=== PATIENT | male | born 1960 | race Hispanic/Latino ===

== ENCOUNTER 2021-05-29 08:26 | Inpatient (IN) | payer OTHER ==
[2021-05-25 09:10] LABS: BASOPHILS % (AUTO) 1.4 % (0.0-5.0); HEMATOCRIT 47.8 % (42-54); LYMPHOCYTES % (AUTO) 29.1 % (21.0-51.0); MEAN CORPUSCULAR HEMOGLOBIN 28.5 pg (27.0-33.0); MEAN CORPUSCULAR HGB CONC 31.4 g/dL (32.0-36.0); MEAN CORPUSCULAR VOLUME 90.9 fL (79-99); MONOCYTES % (AUTO) 7.4 % (3.0-13.0); NEUTROPHILS % (AUTO) 45.6 % (40.0-77.0); PLATELET COUNT (AUTO) 236 K/uL (130-400); RED BLOOD CELL COUNT(AUTO) 5.26 MIL/uL (4.50-6.20); WHITE BLOOD COUNT (AUTO) 6.7 K/uL (4.8-10.8)
[2021-05-25 09:18] LABS: APPEARANCE,URINE Clear (CLEAR); BILIRUBIN,URINE Negative (NEGATIVE); COLOR,URINE Yellow (YELLOW); GLUCOSE, URINE (UA) Negative (NEGATIVE); KETONES,URINE Negative (NEGATIVE); LEUKOCYTE ESTERASE ,URINE Negative (NEGATIVE); NITRATE,URINE Negative (NEGATIVE); OCCULT BLOOD,URINE Trace (NEGATIVE); PH,URINE 5.5 (5.0-8.0); PROTEIN,URINE Negative (NEGATIVE); UROBILINOGEN,URINE 0.2 mg/dL (0.2-1.0)
[2021-05-25 09:19] LABS: POTASSIUM 4.2 mmol/L (3.5-5.1)
[2021-05-25 09:29] LABS: INR 0.97 (0.85-1.15); PROTHROMBIN TIME 10.6 SEC (9.6-11.6)
[2021-05-25 09:30] LABS: PARTIAL THROMBOPLASTIN TIME 27.9 SEC (26.3-35.5)
[2021-05-25 09:42] LABS: BACTERIA,URINE None Seen /HPF (None Seen); MUCUS,URINE Few LPF (None Seen); RBC,URINE 0-1 /HPF (0-1); SQUAMOUS EPITHELIAL CELL,UR 0-2 /HPF (0-2); WBC,URINE 0-1 /HPF (0-1)
[2021-05-29] VITALS (13 sets, daily range): BP systolic 97–173; BP diastolic 47–97
[~2021-05-29] VITALS: Ht 167.6 cm; Wt 93.0 kg
[~2021-05-29 08:26] MED LIST: ACET-2247 PO; AMIT25TA9 PO; ATOR40TA71 PO; BACL10TA PO; BENA40TA92 PO; DULO30CA52 PO; DULO60CA64 PO; ESCI-8 PO; ISOS60TA77 PO; METF-444 PO; METO-391 PO; METO-408 PO; NITR0.4T50 SL; PREG200C28 PO; QUET25TA36 PO; RANO500T3 PO; TAMS-1 PO; ZOLP10TA2 PO
[2021-05-29] MEDS ORDERED: RANOLAZINE 500 MG TAB.SR.12H PO SCH (10:00)
[2021-05-29] MEDS ORDERED: BENAZEPRIL HCL 10 MG TABLET PO SCH (10:00)
[2021-05-29] MEDS ORDERED: ISOSORBIDE MONO 60MG SR TAB PO SCH (10:00)
[2021-05-29] MEDS ORDERED: IOHEXOL 350 MG/ML 100ML INFUS..BTL IV ONE ×2 (10:52→12:04)
[2021-05-29] MEDS ORDERED: LIDOCAINE HCL 400MG/20ML VIAL ONE (10:52)
[2021-05-29] MEDS ORDERED: NITROGLYCERIN 2 MG VIAL IV ONE (10:52)
[2021-05-29] MEDS ORDERED: IOHEXOL-350 50ML VIAL IV ONE (10:52)
[2021-05-29] MEDS ORDERED: HEPARIN 10,000 UNIT/10ML (1,000 UNIT/ML) VIAL ONE (11:06)
[2021-05-29] MEDS ORDERED: NICARDIPINE 25MG INJ IV ONE (11:06)
[2021-05-29] MEDS ORDERED: FENTANYL CITRATE PF 50 MCG/1 ML 2ML VIAL ONE ×2 (11:31→11:47)
[2021-05-29] MEDS ORDERED: MIDAZOLAM HCL 1 MG/ML 2ML VIAL ONE ×2 (11:31→11:44)
[2021-05-29] MEDS ORDERED: BIVALIRUDIN 250 MG/VIAL IV ONE (11:57)
[2021-05-29] MEDS ORDERED: ONDANSETRON 4MG INJ ONE ×3 (12:35→14:20)
[2021-05-29] MEDS ORDERED: MORPHINE 2 MG SYG ONE ×2 (12:36→12:42)
[2021-05-29] MEDS ORDERED: ADENOSINE 6MG VIAL IV ONE (13:09)
[2021-05-29] MEDS ORDERED: VERAPAMIL HCL 2.5 MG/ML VIAL ONE (13:21)
[2021-05-29] MEDS ORDERED: EPTIFIBATIDE 2 MG/ML 10 ML VIAL IVP ONE (13:28)
[2021-05-29] MEDS ORDERED: CLOPIDOGREL 300MG TAB ONE (13:58)
[2021-05-29] MEDS ORDERED: ASPIRIN 325MG EC TAB PO ONE (13:58)
[2021-05-29] MEDS ORDERED: METOPROLOL TARTRATE 1 MG/ML 5ML VIAL IV PRN (14:30)
[2021-05-29] MEDS ORDERED: 0.9%NACL 1000ML 1,000 ML IV SCH (14:30)
[2021-05-29] MEDS ORDERED: DEXTROSE 50%-WATER 50 ML DISP.SYRIN IV PRN (14:30)
[2021-05-29] MEDS ORDERED: NITROGLYCERIN 0.4 MG SL TAB SL PRN (14:30)
[2021-05-29] MEDS ORDERED: HYDRALAZINE 20MG/ML VIAL IV PRN (14:30)
[2021-05-29] MEDS ORDERED: GLUCAGON 1MG KIT 1 MG ML IM PRN (14:30)
[2021-05-29] MEDS ORDERED: ACETAMINOPHEN 325 MG TAB PO PRN (15:00)
[2021-05-29] MEDS ORDERED: NITROGLYCERIN 0.4 MG SL TAB SL SCH (15:00)
[2021-05-29] MEDS ORDERED: ZOLPIDEM TARTRATE 5 MG TAB PO PRN (15:00)
[2021-05-29] MEDS: INSULIN HUMULIN R 100 UNIT/ML 3ML SQ SCH ×2 (16:30)
[2021-05-29] MEDS: RANOLAZINE 500 MG TAB.SR.12H PO SCH (20:13)
[2021-05-29] MEDS: DULOXETINE HCL 30 MG CAP PO SCH (20:13)
[2021-05-29] MEDS: TAMSULOSIN HCL 0.4 MG CAP.ER.24H PO SCH (20:13)
[2021-05-29] MEDS: QUETIAPINE FUMARATE 25 MG TAB PO SCH (20:14)
[2021-05-29] MEDS: METOPROLOL SUCCINATE 50 MG TAB.SR.24H PO SCH (20:14)
[2021-05-29] MEDS: PREGABALIN 100 MG CAPSULE PO SCH (20:25)
[2021-05-29] MEDS: AMITRIPTYLINE 25 MG TABLET PO SCH (20:25)
[2021-05-30] VITALS (20 sets, daily range): BP systolic 75–149; BP diastolic 42–81
[2021-05-30 04:38] LABS: HEMATOCRIT 41.7 % (42-54); MEAN CORPUSCULAR HEMOGLOBIN 28.6 pg (27.0-33.0); MEAN CORPUSCULAR HGB CONC 32.4 g/dL (32.0-36.0); MEAN CORPUSCULAR VOLUME 88.3 fL (79-99); RED BLOOD CELL COUNT(AUTO) 4.72 MIL/uL (4.50-6.20); RED CELL DISTRIBUTION WIDTH 13.2 % (11.0-15.5); WHITE BLOOD COUNT (AUTO) 9.5 K/uL (4.8-10.8)
[2021-05-30 05:07] LABS: POTASSIUM 4.2 mmol/L (3.5-5.1)
[2021-05-30 05:16] LABS: CREATINE KINASE, TOTAL 158 U/L (21-232); MYOGLOBIN 38 ng/mL (10-92)
[2021-05-30] MEDS: INSULIN HUMULIN R 100 UNIT/ML 3ML SQ SCH ×4 (05:49→21:00)
[2021-05-30] MEDS: ASPIRIN 81MG CHEW TAB PO SCH (08:53)
[2021-05-30] MEDS: ATORVASTATIN 40 MG TABLET PO SCH (08:53)
[2021-05-30] MEDS: PREGABALIN 100 MG CAPSULE PO SCH ×3 (08:54→19:59)
[2021-05-30] MEDS: CLOPIDOGREL 75MG TAB PO SCH (08:54)
[2021-05-30] MEDS: DULOXETINE HCL 30 MG CAP PO SCH ×2 (08:55→19:53)
[2021-05-30] MEDS: METOPROLOL SUCCINATE 50 MG TAB.SR.24H PO SCH ×2 (08:55→19:53)
[2021-05-30] MEDS: CITALOPRAM 20 MG TABLET PO SCH (08:55)
[2021-05-30] MEDS: BACLOFEN 10 MG TABLET PO SCH (08:56)
[2021-05-30] MEDS: RANOLAZINE 500 MG TAB.SR.12H PO SCH ×2 (09:00→19:53)
[2021-05-30] MEDS: AMITRIPTYLINE 25 MG TABLET PO SCH ×3 (09:00→19:58)
[2021-05-30] MEDS: BENAZEPRIL HCL 10 MG TABLET PO SCH (09:00)
[2021-05-30] MEDS: TAMSULOSIN HCL 0.4 MG CAP.ER.24H PO SCH (19:52)
[2021-05-30] MEDS: QUETIAPINE FUMARATE 25 MG TAB PO SCH (19:53)
[2021-05-31 04:00] VITALS: BP 125/70
[2021-05-31 04:53] LABS: HEMOGLOBIN A1C 6.2 % (4.0-6.0)
[2021-05-31 04:58] LABS: CHOLESTEROL 161 mg/dL (<200); HDL CHOLESTEROL 54 mg/dL (29-71); LDL DIRECT 86 mg/dL (0-99); TRIGLYCERIDES 92 mg/dL (30-200)
[2021-05-31] MEDS: INSULIN HUMULIN R 100 UNIT/ML 3ML SQ SCH ×2 (06:21→11:30)
[2021-05-31 07:00] VITALS: BP 117/67
[2021-05-31] MEDS: CLOPIDOGREL 75MG TAB PO SCH (09:05)
[2021-05-31] MEDS: RANOLAZINE 500 MG TAB.SR.12H PO SCH (09:05)
[2021-05-31] MEDS: BACLOFEN 10 MG TABLET PO SCH (09:06)
[2021-05-31] MEDS: ATORVASTATIN 40 MG TABLET PO SCH (09:06)
[2021-05-31] MEDS: AMITRIPTYLINE 25 MG TABLET PO SCH ×2 (09:06→14:05)
[2021-05-31] MEDS: METOPROLOL SUCCINATE 50 MG TAB.SR.24H PO SCH (09:06)
[2021-05-31] MEDS: PREGABALIN 100 MG CAPSULE PO SCH ×2 (09:06→14:05)
[2021-05-31] MEDS: DULOXETINE HCL 30 MG CAP PO SCH (09:07)
[2021-05-31] MEDS: CITALOPRAM 20 MG TABLET PO SCH (09:07)
[2021-05-31] MEDS: ASPIRIN 81MG CHEW TAB PO SCH (09:07)
[2021-05-31] MEDS: BENAZEPRIL HCL 10 MG TABLET PO SCH (09:21)
[2021-05-31 11:00] VITALS: BP 117/73
[2021-05-31] MEDS ORDERED: CLOP75TA14 PO (18:33)
[2021-05-31] MEDS ORDERED: AEC81 PO (18:33)
== END 2021-05-31 20:55 | disposition home or self-care (01) | DRG 246 ==
LOC: DAH 08:26 → DAHIP 08:27 → DAH 08:27 → 2BH 14:35
PROVIDERS: ADMIT Internal Medicine Cardiovascular Disease; ATTEND Internal Medicine Cardiovascular Disease
PROC: 027035Z Dilation of Coronary Artery, One Artery with Two Drug-eluting Intraluminal Devices, Percutaneous Approach (ICD-10-PCS; principal; 2021-05-29)
PROC: 4A023N7 Measurement of Cardiac Sampling and Pressure, Left Heart, Percutaneous Approach (ICD-10-PCS; 2021-05-29)
PROC: B2111ZZ Fluoroscopy of Multiple Coronary Arteries using Low Osmolar Contrast (ICD-10-PCS; 2021-05-29)
PROC: B2151ZZ Fluoroscopy of Left Heart using Low Osmolar Contrast (ICD-10-PCS; 2021-05-29)
PROC: 3E07317 Introduction of Other Thrombolytic into Coronary Artery, Percutaneous Approach (ICD-10-PCS; 2021-05-29)
DX: I20.0 Unstable angina (principal); I21.A9 Other myocardial infarction type; E11.51 Type 2 diabetes mellitus with diabetic peripheral angiopathy without gangrene; G89.29 Other chronic pain; I11.9 Hypertensive heart disease without heart failure; E78.5 Hyperlipidemia, unspecified; B35.1 Tinea unguium; Z95.5 Presence of coronary angioplasty implant and graft; Z83.3 Family history of diabetes mellitus; Z80.9 Family history of malignant neoplasm, unspecified; Z82.49 Family history of ischemic heart disease and other diseases of the circulatory system; Z83.2 Family history of diseases of the blood and blood-forming organs and certain disorders involving the immune mechanism
CPT/HCPCS: 36415; 71045; 80048; 80061; 81001; 82550; 82948; 83036; 83874; 83880; 84484; 85025; 85027; 85610; 85730; 92975; 92978; 93005; 93306; 93356; 93458; 93571; 99156; 99157; A4606; C1769; C1887; C1894; C9606; G0378; J0153; J0360; J0583; J1327; J1644; J1815; J2250; J2405; J3010; J3490; Q9967

== ENCOUNTER → 2021-09-20 | Outpatient (CLI) | payer OTHER ==
[~2021-09-20] MED LIST changes: +AEC81 PO; +CLOP75TA14 PO; -ISOS60TA77 PO
== END | disposition home or self-care (01) ==
LOC: RAH 09:38
PROVIDERS: ATTEND Internal Medicine
DX: M47.812 Spondylosis without myelopathy or radiculopathy, cervical region (principal); M19.011 Primary osteoarthritis, right shoulder; M19.031 Primary osteoarthritis, right wrist; M25.531 Pain in right wrist; M25.511 Pain in right shoulder; S40.021S Contusion of right upper arm, sequela; Z98.1 Arthrodesis status; X58.XXXS Exposure to other specified factors, sequela
CPT/HCPCS: 72040; 73030; 73110

== ENCOUNTER → 2022-03-29 | Outpatient (CLI) | payer OTHER ==
[2022-03-29 12:19] LABS: BASOPHILS % (AUTO) 1.1 % (0.0-5.0); EOSINOPHILS % (AUTO) 20.1 % (0.0-8.0); MEAN CORPUSCULAR HEMOGLOBIN 28.9 pg (27.0-33.0); MEAN CORPUSCULAR VOLUME 90.2 fL (79-99); NEUTROPHILS % (AUTO) 45.9 % (40.0-77.0); PLATELET COUNT (AUTO) 244 K/uL (130-400); RED BLOOD CELL COUNT(AUTO) 4.99 MIL/uL (4.50-6.20); RED CELL DISTRIBUTION WIDTH 13.6 % (11.0-15.5); WHITE BLOOD COUNT (AUTO) 8.5 K/uL (4.8-10.8)
[2022-03-29 12:51] LABS: POTASSIUM 4.7 mmol/L (3.5-5.1); THYROID STIMULATING HORMONE 0.84 uIU/mL (0.36-3.74)
[2022-03-29 13:00] LABS: B-TYPE NATRIURETIC PEPTIDE 5 pg/mL (0-100)
== END | disposition home or self-care (01) ==
LOC: LAB 09:10
PROVIDERS: ATTEND Internal Medicine Cardiovascular Disease
DX: I25.110 Atherosclerotic heart disease of native coronary artery with unstable angina pectoris (principal); E11.51 Type 2 diabetes mellitus with diabetic peripheral angiopathy without gangrene
CPT/HCPCS: 36415; 80048; 83880; 84443; 85025

== ENCOUNTER → 2022-06-05 | Outpatient (CLI) | payer OTHER ==
[~2022-06-05] MED LIST changes: +CLOP-31 PO; -CLOP75TA14 PO
== END | disposition home or self-care (01) ==
LOC: SHCH 09:16
PROVIDERS: ATTEND Internal Medicine Cardiovascular Disease
DX: R06.09 Other forms of dyspnea (principal); R55 Syncope and collapse; R07.9 Chest pain, unspecified
CPT/HCPCS: 93306

== ENCOUNTER → 2023-11-25 | Outpatient (CLI) | payer OTHER ==
[~2023-11-25] MED LIST changes: -PREG200C28 PO; +PREG200C29 PO
[2023-11-25] MEDS: REGADENOSON 0.4 MG/5 ML PF SYG IVP ONE (13:43)
== END | disposition home or self-care (01) ==
LOC: SHCH 07:53
PROVIDERS: ATTEND Internal Medicine Cardiovascular Disease
DX: I25.119 Atherosclerotic heart disease of native coronary artery with unspecified angina pectoris (principal); R94.31 Abnormal electrocardiogram [ECG] [EKG]
CPT/HCPCS: 78452; 93017; J2785; A9500 ×2; 96374

== ENCOUNTER → 2023-12-06 | Outpatient (CLI) | payer OTHER | END | disposition home or self-care (01) | LOC: SHCH 10:08 | PROVIDERS: ATTEND Internal Medicine Cardiovascular Disease | DX: I08.3 Combined rheumatic disorders of mitral, aortic and tricuspid valves (principal); I25.119 Atherosclerotic heart disease of native coronary artery with unspecified angina pectoris; R94.31 Abnormal electrocardiogram [ECG] [EKG]; I10 Essential (primary) hypertension; E78.5 Hyperlipidemia, unspecified | CPT/HCPCS: 93306 ==